=== PATIENT | female | born 1995 | race Two or more races ===

== ENCOUNTER → 2025-04-03 | Outpatient (CLI) | payer MEDICAID, SELFPAY ==
--- NOTE | 2025-04-03 09:00 | XR_ITS ---
Examination: Upper GI series with KUB Esophagram standard Fluoroscopy 14 spot fluoroscopic films of the esophagus, stomach duodenum Date and time: April 03, 2025 0855 hours INDICATIONS: Preop gastric bypass surgery FINDINGS: Primary peristaltic esophageal waves No constricting esophageal lesion No gastric mass deformity or ulceration Duodenal sweep small bowel loops visualized are unremarkable Fluoroscopy 0.21 minutes 14 spot fluoroscopic films IMPRESSION: Negative study
== END | disposition home or self-care (01) ==
PROVIDERS: PCP Internal Medicine; Referring Provider Specialist; Visit Provider Specialist
DX: K21.9 Gastro-esophageal reflux disease without esophagitis (principal); Z01.818 Encounter for other preprocedural examination
CPT/HCPCS: 74240; A4699